=== PATIENT | male | born 1950 | race Caucasian/White ===

== ENCOUNTER → 2017-04-25 | Outpatient (CLI) | payer OTHER, MEDICARE ==
[~2017-04-25] MED LIST: AMIO100T4 PO; ASPI-650 PO; ATOR20TA PO; CARV12.52 PO; CARV6.2512 PO; DIGO125T PO; FURO40TA6 PO; FURO80TA77 PO; GABA-827 PO; GABA600T2 PO; HYDR-882 PO; Hydrocodone Bit/Acetaminophen PO; ISOS5TAB2 PO; LISI5TAB7 PO; METH20TA17 PO; POTA10TA PO; RIVA20TA PO
== END | disposition home or self-care (01) ==
LOC: CFH 08:15
PROVIDERS: ATTEND Internal Medicine Cardiovascular Disease
DX: I07.1 Rheumatic tricuspid insufficiency (principal); I42.0 Dilated cardiomyopathy; E78.5 Hyperlipidemia, unspecified; I48.91 Unspecified atrial fibrillation; Z85.46 Personal history of malignant neoplasm of prostate; Z95.0 Presence of cardiac pacemaker; Z87.891 Personal history of nicotine dependence
CPT/HCPCS: 93306

== ENCOUNTER 2019-08-14 06:17 | Outpatient (CLI) | payer MEDICARE ==
[~2019-08-14 06:17] MED LIST changes: -DIGO125T PO; +DIGO125T85 PO; -GABA600T2 PO; +GABA600T7 PO; +HYDR-3653 PO; -HYDR-882 PO
== END 2019-08-14 23:59 | disposition home or self-care (01) ==
LOC: CVU 06:17
PROVIDERS: ATTEND Internal Medicine Cardiovascular Disease
DX: I35.8 Other nonrheumatic aortic valve disorders (principal); I42.0 Dilated cardiomyopathy
CPT/HCPCS: 93306

== ENCOUNTER 2019-09-11 08:00 | Outpatient (CLI) | payer MEDICARE ==
[2019-09-15] MEDS ORDERED: [UNRECOGNIZED DRUG - OTHER] (13:46)
== END 2019-09-11 23:59 | disposition home or self-care (01) ==
LOC: STAR 08:00
PROVIDERS: ATTEND Orthopaedic Surgery
DX: Z01.818 Encounter for other preprocedural examination (principal); Z11.59 Encounter for screening for other viral diseases; M16.11 Unilateral primary osteoarthritis, right hip
CPT/HCPCS: 36415; 87635

== ENCOUNTER 2019-09-17 06:17 | Day surgery (SDC) | payer MEDICARE ==
[2019-09-15 12:50] VITALS: BP 132/75
[2019-09-15 13:26] LABS: BASOPHILS # (AUTO) 0.01 x10^3/uL (0-0.1); BASOPHILS % (AUTO) 0 % (0-1); EOSINOPHILS # (AUTO) 0.15 x10^3/uL (0-0.4); EOSINOPHILS % (AUTO) 2 % (1-7); LYMPHOCYTES # (AUTO) 1.67 x10^3/uL (1-3.4); LYMPHOCYTES % (AUTO) 25 % (22-44); MD NO; MEAN CORPUSCULAR HEMOGLOBIN 30.6 pg (27.5-34.5); MEAN CORPUSCULAR HGB CONC 32.3 g/dL (33.2-36.2); MEAN CORPUSCULAR VOLUME 94.5 fL (81-97); MEAN PLATELET VOLUME 8.4 fL (7.4-10.4); MONOCYTES # (AUTO) 0.56 x10^3/uL (0.2-0.8); MONOCYTES % (AUTO) 9 % (2-9); NEUTROPHILS # (AUTO) 4.21 x10^3/uL (1.8-6.8); NEUTROPHILS % (AUTO) 64 % (42-75); PLATELET COUNT 253 x10^3/uL (130-400); RED CELL DISTRIBUTION WIDTH 17.7 % (9.4-14.8)
[2019-09-15 13:34] LABS: INTERNATIONAL NORMALIZED RATIO 0.96 (0.93-1.1); PROTHROMBIN TIME 10.2 Seconds (9.6-11.5)
[2019-09-15 13:35] LABS: ALANINE AMINOTRANSFERASE 31 U/L (12-78); ALBUMIN 3.4 g/dL (3.4-5.0); ANION GAP 1 mmol/L (5-15); CALCIUM 9.5 mg/dL (8.5-10.1); CHLORIDE 109 mmol/L (98-107); CREATININE 1.59 mg/dL (0.7-1.3)
[2019-09-15 13:43] LABS: ALKALINE PHOSPHATASE 106 U/L (45-117); BILIRUBIN,TOTAL 0.7 mg/dL (0.2-1.0); TOTAL PROTEIN 6.6 g/dL (6.4-8.2)
[~2019-09-17] VITALS: Ht 180.3 cm; Wt 105.9 kg
[~2019-09-17 06:17] MED LIST changes: +LACTATED RINGERS 1,000 ML IV SCH; +PLEASE ENTER HEIGHT AND WEIGHT MC SCH; +[UNRECOGNIZED DRUG - OTHER]
[2019-09-17] MEDS ORDERED: KETOROLAC 60 MG/2 ML ONE (06:27)
[2019-09-17] MEDS ORDERED: SODIUM CHLORIDE 0.9% 50 ML ONE (06:28)
[2019-09-17] MEDS ORDERED: ROPIvacaine/PF 0.5%, 20 ML ONE (06:28)
[2019-09-17] MEDS ORDERED: EPINEPHRINE 1 MG/ML, 1ML ONE (06:28)
[2019-09-17] MEDS ORDERED: VANCOMYCIN 1,000 MG ONE (06:28)
[2019-09-17] MEDS ORDERED: TRANEXAMIC ACID 100 MG/ML, 10ML ONE (06:28)
[2019-09-17] MEDS ORDERED: ROPIvacaine/PF 0.5%, 30 ML ONE (06:28)
[2019-09-17] MEDS ORDERED: NS + 20MEQ KCL 1,000 ML IV SCH (06:34)
[2019-09-17] MEDS ORDERED: ZOLPIDEM 5MG TABLET PO PRN (07:00)
[2019-09-17] MEDS ORDERED: SENNA/DOCUSATE TABLET PO PRN (07:00)
[2019-09-17] MEDS ORDERED: HYDROcodone/APAP 5/325 TABLET PO PRN (07:00)
[2019-09-17] MEDS ORDERED: ONDANSETRON 4 MG TABLET PO PRN (07:00)
[2019-09-17] MEDS ORDERED: ACETAMINOPHEN 650 MG/20.3 ML UDC PO PRN (07:00)
[2019-09-17] MEDS ORDERED: OXYcodone IR 5MG TABLET PO PRN (07:00)
[2019-09-17] MEDS ORDERED: MAGNESIUM HYDROXIDE 8%, 30ML UDC PO PRN (07:00)
[2019-09-17] MEDS ORDERED: BISACODYL 10 MG SUPP PR PRN (07:00)
[2019-09-17] MEDS ORDERED: ONDANSETRON 2MG/ML, 2ML IV PRN (07:00)
[2019-09-17] MEDS ORDERED: DIPHENHYDRAMINE 25 MG CAPSULE PO PRN (07:00)
[2019-09-17] MEDS ORDERED: LACTATED RINGERS 1,000 ML IV SCH (07:23)
[2019-09-17] MEDS ORDERED: ATOR20TA37 PO (07:25)
[2019-09-17] MEDS ORDERED: CARV25TA12 PO (07:25)
[2019-09-17] MEDS ORDERED: CHLORHEXIDINE 15 ML UDC MM ONE (07:30)
[2019-09-17] MEDS ORDERED: GABAPENTIN 300 MG CAPSULE PO ONE (07:30)
[2019-09-17] MEDS ORDERED: ACETAMINOPHEN 500 MG TABLET PO ONE (07:30)
[2019-09-17] MEDS ORDERED: ASPI-650 PO (07:31)
[2019-09-17] MEDS ORDERED: TEST200V3 IM (07:31)
[2019-09-17] MEDS ORDERED: BIOT25005 PO (07:31)
[2019-09-17] MEDS ORDERED: MULT-717 PO (07:31)
[2019-09-17] MEDS ORDERED: MELA10CA PO (07:31)
[2019-09-17] MEDS ORDERED: UBID100C41 PO (07:31)
[2019-09-17] MEDS ORDERED: PRAS1TAB3 PO (07:31)
[2019-09-17] MEDS ORDERED: METH20TA8 PO (07:31)
[2019-09-17 07:37] VITALS: BP 161/77
[2019-09-17] MEDS ORDERED: MIDAZOLAM 1 MG/ML, 2ML ONE (07:48)
[2019-09-17] MEDS ORDERED: FENTANYL PF 250 MCG/5ML ONE ×2 (07:49→09:12)
[2019-09-17] MEDS ORDERED: LABETALOL 5MG/ML, 20ML IV PRN (09:00)
[2019-09-17] MEDS ORDERED: PROMETHAZINE 25 MG/ML, 1ML IV PRN (09:00)
[2019-09-17] MEDS ORDERED: CARVEDILOL 12.5 MG TABLET PO SCH (09:00)
[2019-09-17] MEDS ORDERED: GABAPENTIN 400 MG CAPSULE PO SCH ×2 (09:00→21:00)
[2019-09-17] MEDS ORDERED: DOCUSATE 100 MG CAPSULE PO SCH (09:00)
[2019-09-17] MEDS ORDERED: DIGOXIN 0.125 MG TABLET PO SCH (09:00)
[2019-09-17] MEDS ORDERED: MEPERIDINE/PF 25MG/0.5ML IVPush PRN (09:00)
[2019-09-17] MEDS ORDERED: OXYcodone 5 MG/5 ML ORAL.SOL UDC PO PRN (09:00)
[2019-09-17] MEDS ORDERED: ALBUTEROL SULFATE 2.5 MG/3 ML NPPB PRN (09:00)
[2019-09-17] MEDS ORDERED: ROCURONIUM 10MG/ML,5ML ONE (09:45)
[2019-09-17] MEDS ORDERED: DEXAMETHASONE 4 MG/ML, 1ML ONE (09:45)
[2019-09-17] MEDS ORDERED: PROPOFOL 10 MG/ML, 20ML ONE (09:45)
[2019-09-17] MEDS ORDERED: ONDANSETRON 2MG/ML, 2ML ONE (09:45)
[2019-09-17] MEDS ORDERED: SUCCINYLCHOLINE 20 MG/ML, 10ML ONE (09:45)
[2019-09-17] MEDS ORDERED: CEFAZOLIN 1,000 MG ONE (09:45)
[2019-09-17] MEDS ORDERED: NEOSTIGMINE 1 MG/ML, 10ML ONE (09:45)
[2019-09-17] MEDS ORDERED: GLYCOPYRROLATE 0.2MG/1ML, 5ML ONE (09:45)
[2019-09-17] MEDS: FENTANYL PF 100 MCG/2ML IV PRN ×4 (10:11→10:57)
[2019-09-17] MEDS ORDERED: OXYcodone 5 MG/5 ML ORAL.SOL UDC ONE (10:12)
[2019-09-17] MEDS ORDERED: FENTANYL PF 100 MCG/2ML ONE ×2 (10:12→10:39)
[2019-09-17] MEDS ORDERED: DIAZEPAM 5 MG/ML, 2ML ONE (10:12)
[2019-09-17] MEDS: DIAZEPAM 5 MG/ML, 2ML IVPush PRN ×2 (10:19→10:44)
[2019-09-17] MEDS ORDERED: hydrALAzine 20 MG/ML, 1ML ONE (10:26)
[2019-09-17] MEDS: hydrALAzine 20 MG/ML, 1ML IV PRN ×2 (10:37→11:03)
[2019-09-17] MEDS ORDERED: HYDROmorphone 2 MG/ML, 1ML ONE (10:39)
[2019-09-17] MEDS: HYDROmorphone 2 MG/ML, 1ML IVPush PRN ×4 (10:42→11:14)
[2019-09-17] MEDS ORDERED: MEPERIDINE/PF 25MG/ML,1ML ONE (11:30)
[2019-09-17 12:22] VITALS: BP 133/63
[2019-09-17 14:32] VITALS: BP 126/71
[2019-09-17] MEDS ORDERED: OXYC5CAP2 PO (15:08)
[2019-09-17] MEDS ORDERED: TRAM50TA2 PO (15:09)
[2019-09-17] MEDS ORDERED: MELO7.5T5 PO (15:09)
[2019-09-17] MEDS ORDERED: CEFAZOLIN PMX 2GM/50ML 50 ML IVPB SCH (18:00)
[2019-09-17] MEDS ORDERED: ASPIRIN 81 MG TABLET EC PO SCH (18:00)
[2019-09-18] MEDS ORDERED: DEXAMETHASONE 4 MG/ML, 1ML IVPush SCH (06:00)
== END 2019-09-17 15:50 | disposition home or self-care (01) ==
LOC: OUT 06:17 → 4NE 12:00 → DCLOUNGE 15:30 → OUT 15:50
PROVIDERS: ATTEND Orthopaedic Surgery
DX: M16.11 Unilateral primary osteoarthritis, right hip (principal); M25.751 Osteophyte, right hip; I10 Essential (primary) hypertension; N28.9 Disorder of kidney and ureter, unspecified; Z79.01 Long term (current) use of anticoagulants; Z79.82 Long term (current) use of aspirin; Z79.899 Other long term (current) drug therapy; Z85.46 Personal history of malignant neoplasm of prostate; Z87.891 Personal history of nicotine dependence; Z95.0 Presence of cardiac pacemaker; Z96.642 Presence of left artificial hip joint; Z82.3 Family history of stroke
CPT/HCPCS: 27130; 36415; 72170; 73501; 80053; 83036; 85025; 85610; 85730; 87081; 93005; 97161; C1713; C1776; J0171; J0330; J0360; J0690; J1100; J1170; J2175; J2250; J2405; J2704; J2710; J2795; J3010; J3360; J3370; J7120; 76000; 87635; J1885

== ENCOUNTER 2020-04-13 11:09 | Day surgery (SDC) | payer MEDICARE ==
[~2020-04-13] VITALS: Ht 177.8 cm; Wt 109.0 kg
[~2020-04-13 11:09] MED LIST changes: +ASPI-1026 PO; -ASPI-650 PO; +ASPI325T20 PO; +ATOR20TA37 PO; +BIOT25005 PO; +CARV25TA12 PO; -LACTATED RINGERS 1,000 ML IV SCH; +MELA10CA PO; +MELO7.5T5 PO; +METH20TA8 PO; +MULT-717 PO; +OXYC5CAP2 PO; -PLEASE ENTER HEIGHT AND WEIGHT MC SCH; +PRAS1TAB3 PO; +TEST200V3 IM; +TRAM50TA2 PO; +UBID100C41 PO
[2020-04-13] MEDS ORDERED: CEFAZOLIN 1,000 MG ONE ×3 (11:35→12:36)
[2020-04-13] MEDS ORDERED: LIDOCAINE 2%, 20ML ONE (11:35)
[2020-04-13] MEDS ORDERED: PLEASE ENTER HEIGHT AND WEIGHT MC SCH (12:00)
[2020-04-13] MEDS ORDERED: SODIUM CHLORIDE 0.9% 1,000 ML IV SCH (12:00)
[2020-04-13] MEDS ORDERED: MELA10TA7 PO (12:06)
[2020-04-13] MEDS ORDERED: PROPOFOL 50 ML ONE (12:26)
[2020-04-13 12:28] LABS: ANION GAP 5 mmol/L (5-15); CALCIUM 10.2 mg/dL (8.5-10.1); CHLORIDE 110 mmol/L (98-107); CREATININE 1.36 mg/dL (0.7-1.3); INTERNATIONAL NORMALIZED RATIO 1.11 (0.93-1.1); PROTHROMBIN TIME 11.9 Seconds (9.6-11.5)
[2020-04-13 12:29] LABS: BASOPHILS % (AUTO) 0 % (0-1); EOSINOPHILS % (AUTO) 3 % (1-7); LYMPHOCYTES % (AUTO) 18 % (22-44); MEAN CORPUSCULAR HGB CONC 33.3 g/dL (33.2-36.2); MEAN PLATELET VOLUME 8.9 fL (7.4-10.4); MONOCYTES % (AUTO) 8 % (2-9); NEUTROPHILS % (AUTO) 70 % (42-75); PLATELET COUNT 220 x10^3/uL (130-400); RED CELL DISTRIBUTION WIDTH 18.8 % (9.4-14.8)
[2020-04-13 12:31] LABS: MD NO
[2020-04-13] MEDS ORDERED: FENTANYL PF 250 MCG/5ML ONE (12:35)
[2020-04-13] MEDS ORDERED: PROPOFOL 10 MG/ML, 20ML ONE (12:36)
[2020-04-13] MEDS ORDERED: EPHEDRINE 50 MG/ML, 1ML IVPush PRN (14:00)
[2020-04-13] MEDS ORDERED: DIAZEPAM 5 MG/ML, 2ML IVPush PRN (14:00)
[2020-04-13] MEDS ORDERED: DIPHENHYDRAMINE 50 MG/ML, 1ML IVPush PRN (14:00)
[2020-04-13] MEDS ORDERED: OXYcodone 5 MG/5 ML ORAL.SOL UDC PO PRN (14:00)
[2020-04-13] MEDS ORDERED: MEPERIDINE/PF 25MG/0.5ML IVPush PRN (14:00)
[2020-04-13] MEDS ORDERED: HOLD MEDICATION MC PRN (14:00)
[2020-04-13] MEDS ORDERED: HYDROmorphone 1 MG/ML, 1ML INJ IVPush PRN (14:00)
[2020-04-13] MEDS ORDERED: PROMETHAZINE 25 MG/ML, 1ML IVPush PRN (14:00)
[2020-04-13] MEDS ORDERED: EPHEDRINE 50 MG/ML, 1ML IM PRN (14:00)
[2020-04-13] MEDS ORDERED: ONDANSETRON 2MG/ML, 2ML IVPush PRN (14:00)
[2020-04-13] MEDS ORDERED: ACETAMINOPHEN 325 MG TABLET PO PRN (14:00)
[2020-04-13] MEDS ORDERED: FENTANYL PF 100 MCG/2ML ONE (14:16)
[2020-04-13] MEDS ORDERED: OXYcodone 5 MG/5 ML ORAL.SOL UDC ONE (14:16)
[2020-04-13] MEDS: FENTANYL PF 100 MCG/2ML IV PRN ×3 (14:18→14:34)
[2020-04-13] MEDS ORDERED: SODIUM CHLORIDE FLUSH 10ML SYR IVF SCH (21:00)
== END 2020-04-13 16:02 | disposition home or self-care (01) ==
LOC: CACL 11:09
PROVIDERS: ATTEND Internal Medicine Cardiovascular Disease
DX: Z45.02 Encounter for adjustment and management of automatic implantable cardiac defibrillator (principal); I42.8 Other cardiomyopathies; I47.2 Ventricular tachycardia; I47.1 Supraventricular tachycardia; I48.0 Paroxysmal atrial fibrillation; I10 Essential (primary) hypertension; Z20.822 Contact with and (suspected) exposure to COVID-19; Z79.01 Long term (current) use of anticoagulants; Z79.82 Long term (current) use of aspirin; Z79.891 Long term (current) use of opiate analgesic; Z79.899 Other long term (current) drug therapy; Z87.891 Personal history of nicotine dependence
CPT/HCPCS: 33263; 36415; 71046; 80048; 85025; 85610; 87635; 93005; C1721; J0690; J2704; J3010; 33229; 33264; C1882

== ENCOUNTER → 2020-08-10 | Outpatient (CLI) | payer MEDICARE ==
[~2020-08-10] MED LIST changes: +MELA10TA7 PO
== END | disposition home or self-care (01) ==
LOC: CVU 08:15
PROVIDERS: ATTEND Internal Medicine Cardiovascular Disease
DX: I08.3 Combined rheumatic disorders of mitral, aortic and tricuspid valves (principal); I42.0 Dilated cardiomyopathy
CPT/HCPCS: 93306